=== PATIENT | female | born 1985 | race Caucasian/White ===

== ENCOUNTER 2016-11-13 04:01 | Inpatient (IN) | payer OTHER ==
[2016-11-13] MEDS ORDERED: OXYTOCIN/RINGERS LACTATE 1,000 ML IV PRN (04:30)
[2016-11-13] MEDS ORDERED: EPSOM SALT 454 GM TP PRN (04:30)
[2016-11-13] MEDS ORDERED: IBUPROFEN 600 MG TAB PO PRN (04:30)
[2016-11-13] MEDS ORDERED: TERBUTALINE SULFATE 1 MG/ML VIAL IV PRN (04:30)
[2016-11-13] MEDS ORDERED: LIDOCAINE 1% 30 ML SDV SC PRN (04:30)
[2016-11-13] MEDS ORDERED: LR 1,000 ML IV PRN (04:30)
[2016-11-13] MEDS ORDERED: OLIVE OIL 118 ML BTL MISC PRN (04:30)
[2016-11-13] MEDS ORDERED: AMMONIA AROMATIC 1 EACH AMP IH ONE (04:55)
[2016-11-13] MEDS ORDERED: OLIVE OIL 118 ML BTL ONE (04:55)
[2016-11-13] MEDS ORDERED: TERBUTALINE SULFATE 1 MG/ML VIAL ONE (04:55)
[2016-11-13] MEDS ORDERED: LIDOCAINE 1% 30 ML SDV ONE (04:55)
[2016-11-13] MEDS ORDERED: OXYTOCIN 10 UNIT/ML VIAL ONE (04:56)
[2016-11-13] MEDS ORDERED: MISOPROSTOL 200 MCG TAB ONE (04:56)
[2016-11-13 04:59] LABS: % IMMATURE GRANULYOCYTES 0.6 % (0.0-1.1); ABSOLUTE IMMATURE GRANULOCYTES 0.05 10^3/uL (0.00-0.10); ADD DIFF? NO; ADD MORPH? NO; ADD SCAN? NO; ATYPICAL LYMPHOCYTE FLAG 0 (0-99); FRAGMENT RBC FLAG 0 (0-99); HEMATOCRIT 41.9 % (38.0-47.0); HEMOGLOBIN 14.9 g/dL (12.6-16.3); LEFT SHIFT FLG 0 (0-99); LIPEMIA HEMOLYSIS FLAG 90 (0-99); MEAN CELL HEMOGLOBIN 31.3 pg (27.9-34.1); MEAN CELL HEMOGLOBIN CONCENTR. 35.6 g/dL (32.4-36.7); MEAN PLATELET VOLUME 13.1 fL (8.7-11.7); PLATELET CLUMPS FLAG 0 (0-99); PLATELET COUNT 178 10^3/uL (150-400); RED BLOOD CELL COUNT 4.76 10^6/uL (4.18-5.33); RED CELL DISTRIBUTION WIDTH 12.8 % (11.5-15.2)
[2016-11-13] MEDS ORDERED: OXYTOCIN/RINGERS LACTATE 500 ML IV SCH (05:00)
--- NOTE | 2016-11-13 06:28 | GHP ---
[f rep st] PREOP HISTORY AND PHYSICAL DATE OF ADMISSION: 11/13/2016 ADMITTING DIAGNOSIS: 1, para 0, at 39 weeks and 5 days with an estimated due date of 2016, presents for spontaneous rupture of membranes, clear at 1600 yesterday, 11/12, with occasional contractions, not painful. Patient was concerned about decreased movement, so presented arou nd 4 a.m. this morning. Denies vaginal bleeding. PAST MEDICAL HISTORY: Migraines. PAST SURGICAL HISTORY: Tonsillectomy, age 17. MEDICATIONS: vitamins. ALLERGIES: None. GYNECOLOGIC HISTORY: Denies history of abnormal Pap smears or STDs. FAMILY HISTORY: Noncontributory. SOCIAL HISTORY: . Denies alcohol, tobacco, or drug use. OBSTETRICAL HISTORY: 1, first . LABORATORIES: B+, antibody negative, GBS negative, HIV negative, hepatitis B negative, syp hilis negative, gonorrhea and chlamydia negative, rubella immune. Verified genetic screening negati ve. PHYSICAL EXAMINATION: VITAL SIGNS: Stable. GENERAL APPEARANCE: Alert and oriented x3. HEART: Rate regular. LUNGS: Clear to auscultation bilaterally. ABDOMEN: Gravid. Nontender. PELVIC: Vaginal exam: 3, 80, -1 in the office this week. position cephalic. heart tr acing category 1. heart tones 130s. Moderate variability. Positive accels. No decels. ASSESSMENT: A 31-year-old, 1, para 0, at 39 weeks and 5 days, presents for spontaneous rupt ure of membranes, not in labor. PLAN: Admission labs, Pitocin induction per protocol. Discussed Pitocin risks. Patient verbalized understanding. Maternal monitoring. Pain meds per patient request. Anticipate . /[id number]/MODL
--- NOTE | 2016-11-13 08:45 | OBPROG ---
OBG Progress Note Assessment/Plan: Assessment: 31 y/o @ 39 5/7 weeks with PROM Plan: Pitocin started and at 12 mu/min, cont per protocol FHTs - Cat I tracing Pt wants to go natural GBS negative, no abx needed 11/13/16 08:31 Subjective: Pt is doing well. Having some pain in her hips with ctx's. Declines SVE at this time. Objective: 11/13/16 04:45 Patient ABO/Rh B POSITIVE 11/13/16 04:45 Current Contraction Pattern: Regular FHR (bpm): 135 FHR Pattern Variability: Moderate FHR Category: 1 Membranes: SROM Amniotic Fluid Color: Clear ICD10 Worksheet Patient Problems: Problems Problem Status Onset SROM (spontaneous rupture of membranes) Acute
--- NOTE | 2016-11-13 09:03 | GHP ---
[f rep st] HISTORY AND PHYSICAL DATE OF ADMISSION: 11/13/2016 HISTORY OF PRESENT ILLNESS: The patient is a 31-year-old, 1, para 0 at 39 and 5/7 weeks with estimated due date 11/15/2016 by last menstrual period 02/08/2016 and confirmed by a first-trimester ultrasound at 9 weeks. The patient presents to Labor and Delivery with complaints of premature rupture of membranes at 4 o'clock on 11/12, clear fluid and no onset of contractions. GBS culture is negative. The patient did get good care at [facility], and presented in her 1st trimester. is uncomplicated. The patient did receive Tdap and flu during the . All genetic testing is negative. PAST OB HISTORY: The patient isprimiparous. GYNECOLOGICAL HISTORY: Age of menarche 8. Cycles are every 28 days, lasting 4- 5 days. Last menstrual period 02/08/2016. Had a positive test 03/09/2016. The patient denies any history of abnormal Pap smears. No exposure to sexually transmitted diseases and did receive Gardasil x3 in 2006. PAST MEDICAL HISTORY: Remarkable for migraines. PAST SURGICAL HISTORY: Tonsillectomy at age 16. FAMILY HISTORY: Unremarkable. SOCIAL HISTORY: Patient is . Lives with her . Patient denies any alcohol, tobacco, or illicit drug use. LABS: B positive. Antibody negative. RPR nonreactive. Rubella immune. Hepatitis B surface antigen negative. HIV negative. Pap, gonorrhea, chlamydia cultures negative this . Single AFP was negative. Verifi is negative. 1-hour Glucola was wnl. H and H 1st trimester 14 and 42, and in the 3rd trimester 14 and 41. ADMISSION PHYSICAL EXAM: VITAL SIGNS: Stable. Patient is afebrile. GENERAL: Alert, oriented x3. Well-nourished, well-developed female in no apparent distress. CARDIOVASCULAR: Heart regular rate and rhythm. LUNGS: Clear to auscultation. ABDOMEN: Gravid, soft, nontender, nondistended. EXTREMITIES: Normal to inspection without calf tenderness or edema. PELVIC: The patient was found to be 3 cm dilated, 80% effaced, -1 station in the office yesterday afternoon. Was not rechecked upon admission today. heart tones category 1 tracing, baseline 135 beats per minute. Positive accelerations. No decelerations. Moderate variability. ASSESSMENT: The patient is a 31-year-old, 1, para 0 at 39 weeks and 5 days with estimated due date 11/15/2016, who presents with premature rupture of membranes. PLAN: 1. Admit to Labor and Delivery. 2. Pitocin was started already per protocol. 3. GBS is negative. No prophylactic antibiotics needed. 4. The patient is not requesting any pain medicine or epidural at this time. 5. Anticipate vaginal delivery. /[id number]/MODL MTDD
[2016-11-13] MEDS ORDERED: fentaNYL 2MCG/ML/BUP 0.1% RTU 100 ML BAG EP ONE (12:34)
[2016-11-13] MEDS ORDERED: BUPIVACAINE 0.25% 30 ML SDV ONE (12:35)
[2016-11-13] MEDS ORDERED: fentaNYL 100 MCG/2 ML INJ ONE (12:35)
[2016-11-13] MEDS ORDERED: PHENYLEPHRINE HCL 100 MCG/ML SYR ONE (12:35)
--- NOTE | 2016-11-13 12:35 | OBPROG ---
OBG Progress Note Assessment/Plan: Assessment: 31 y/o @ 39 5/7 weeks with PROM Plan: Pitocin at 16 mu/min, cont per protocol FHTs - Cat II tracing with decel x 2 with maile to 90 bpm with return to baseline after resuscitation Dr. Peres paged for epidural 11/13/16 12:32 Subjective: Pt is requesting an epidural at this time. Objective: 11/13/16 04:45 Patient ABO/Rh B POSITIVE 11/13/16 04:45 - SVE Dilation (cm): 5 Effacement (%): 90 Station: +1 Current Contraction Pattern: Regular FHR (bpm): 140 FHR Pattern Variability: Moderate FHR Category: 2 Membranes: SROM Amniotic Fluid Color: Clear ICD10 Worksheet Patient Problems: Problems Problem Status Onset SROM (spontaneous rupture of membranes) Acute
--- NOTE | 2016-11-13 14:26 | OBPROG ---
OBG Progress Note Assessment/Plan: Assessment: 31 y/o @ 39 5/7 weeks with PROM, now in active labor Plan: Called into room by RN re: prolonged decel. Decel x 3-4 min with maile down to 90 bpm; with return to baseline. Pitocin turned off, pt to L side, oxygen applied- resuscitation performed and now reassuring strip. Pt reexamined and found to be Ant lip/+1 Will have pt labor down and reassess and then start pushing Will cont to closely monitor strip Anticipate 11/13/16 14:22 Subjective: Pt is comfortable, s/p epidural. Objective: 11/13/16 04:45 Patient ABO/Rh B POSITIVE 11/13/16 04:45 - SVE Dilation (cm): 9 Effacement (%): 100 (Ant lip) Station: +1 Current Contraction Pattern: Regular FHR (bpm): 130 FHR Pattern Variability: Moderate FHR Category: 2 Membranes: SROM Amniotic Fluid Color: Clear ICD10 Worksheet Patient Problems: Problems Problem Status Onset PROM (premature rupture of membranes) Acute
[2016-11-13] MEDS ORDERED: PHENYLEPHRINE HCL 100 MCG/ML SYR IVP PRN (15:00)
[2016-11-13] MEDS ORDERED: fentaNYL 2MCG/ML/BUP 0.1% RTU 100 ML EP SCH (15:00)
[2016-11-13] MEDS ORDERED: LR 500 ML IV SCH (15:00)
[2016-11-13] MEDS ORDERED: ONDANSETRON 4 MG/2 ML VIAL IVP PRN (15:00)
--- NOTE | 2016-11-13 15:05 | PREANESOB ---
Obstetric Pre-Anesthesia Info - General Info Proposed Procedure: Labor and delivery with pitocin (PROM). : 1 Para: 0 WBD: 40 - Info Status: Full Term Monitors: External FHR Baseline (bpm): 130 FHR Pattern: Reassuring - Labor Status Cervical Dilation per last OB SVE: 5, 9 Station per last OB SVE: +1 Amniotic Fluid Color: Clear Pitocin: In Use Indications for Labor Analgesia: Augmentation of Labor, Pain Control Labor Epidural: Proposed Anesthesia ROS: PROM. Allergies/Adverse Reactions: Allergy/AdvReac Type Severity Reaction Status Date / Time No Known Allergies Allergy Unverified 11/13/16 04:30 Home Medications: Medication Instructions Recorded 1 tab PO DAILY 11/13/16 Visit Medications: Generic Name Dose Route Start Last Admin Trade Name Freq PRN Reason Stop Dose Admin Diphenhydramine HCl 25 - 50 mg 11/13/16 15:00 Benadryl Injection IVP 05/12/17 14:59 Q6HRS PRN Itching Lactated Ringer's 1,000 mls @ 0 mls/hr 11/13/16 04:30 11/13/16 05:07 Lr IV 05/12/17 04:29 1,000 mls PRN PRN Administration SEE PROTOCOL CONDITIONS Protocol Per Protocol Oxytocin/Lactated Ringer's 1,000 mls @ 150 mls/hr 11/13/16 04:30 Pitocin 20 Units/Lr (Premix) IV PRN PRN Post- bleeding Oxytocin/Lactated Ringer's 500 mls @ 0 mls/hr 11/13/16 05:00 11/13/16 05:07 Pitocin 30 Units/Lr (Premix) IV 05/12/17 04:59 500 mls CONT DEVON Administration Per Protocol Fentanyl/Bupivacaine HCl 100 mls @ 0 mls/hr 11/13/16 15:00 Fentanyl/Bupivacaine/Ns 2 Mcg/Ml 0.1% (Premix EP 11/23/16 14:59 CONT DEVON Protocol As Directed Lactated Ringer's 500 mls @ 0 mls/hr 11/13/16 15:00 Lr IV 05/12/17 14:59 CONT DEVON As Directed Ibuprofen 600 mg 11/13/16 04:30 Motrin PO 05/12/17 04:29 Q6HRS PRN post , inflammation Lidocaine HCl 30 ml 11/13/16 04:30 Lidocaine Hcl 1% SC 05/12/17 04:29 ONCE PRN Episiotomy Magnesium Sulfate 454 gm 11/13/16 04:30 Epsom Salt TP 05/12/17 04:29 PRN PRN perineal discomfort [place] Oil 118 ml 11/13/16 04:30 Sweet Oil MISC 05/12/17 04:29 ONCE PRN preneal massage Ondansetron HCl 4 mg 11/13/16 15:00 Zofran IVP 05/12/17 14:59 Q4HRS PRN Nausea/Vomiting, Can't Take PO Phenylephrine HCl 100 mcg 11/13/16 15:00 Carloz-Synephrine IVP 05/12/17 14:59 .Q2M PRN Hypotension Terbutaline Sulfate 0.25 mg 11/13/16 04:30 Brethine IV 05/12/17 04:29 ONCE PRN Tachysystole Discontinued Medications Generic Name Dose Route Start Last Admin Trade Name Freq PRN Reason Stop Dose Admin Ammonia (Aromatic Spirit) Confirm 11/13/16 04:55 Ammonia Aromatic Administered 11/13/16 04:56 Dose 1 each IH .STK-MED ONE Bupivacaine HCl Confirm 11/13/16 12:35 Sensorcaine 0.25% Sdv Administered 11/13/16 12:36 Dose 30 ml .ROUTE .STK-MED ONE Ephedrine Sulfate Confirm 11/13/16 04:55 Ephedrine Sulfate Administered 11/13/16 04:56 Dose 50 mg .ROUTE .STK-MED ONE Fentanyl Confirm 11/13/16 12:35 Sublimaze Administered 11/13/16 12:36 Dose 100 mcg .ROUTE .STK-MED ONE Fentanyl/Bupivacaine HCl Confirm 11/13/16 12:34 Fentanyl/Bupivacaine/Ns 2 Mcg/Ml 0.1% (Premix Administered 11/13/16 12:35 Dose 100 ml EP .STK-MED ONE Lidocaine HCl Confirm 11/13/16 04:55 Lidocaine Hcl 1% Administered 11/13/16 04:56 Dose 30 ml .ROUTE .STK-MED ONE Misoprostol Confirm 11/13/16 04:56 Cytotec Administered 11/13/16 04:57 Dose 1,000 mcg .ROUTE .STK-MED ONE [place] Oil Confirm 11/13/16 04:55 Sweet Oil Administered 11/13/16 04:56 Dose 118 ml .ROUTE .STK-MED ONE Oxytocin Confirm 11/13/16 04:56 Pitocin Administered 11/13/16 04:57 Dose 30 unit .ROUTE .STK-MED ONE Phenylephrine HCl Confirm 11/13/16 12:35 Carloz-Synephrine Administered 11/13/16 12:36 Dose 1,000 mcg .ROUTE .STK-MED ONE Terbutaline Sulfate Confirm 11/13/16 04:55 Brethine Administered 11/13/16 04:56 Dose 1 mg .ROUTE .STK-MED ONE - Anesthesia History Response to Local Anesthetics: Normal - Social History Substance Use/Abuse: Denies - Focused Exam Blood Pressure: 118/80 Heart Rate: 82 Height/Weight (Nursing): Height 160.02 cm Weight 73.028 kg Physical Exam: Within normal limits. ASA Status: II Labs: 11/13/16 04:45 Patient ABO/Rh B POSITIVE 11/13/16 04:45 - Plan Anesthetic Plan: CSE Consent Signed and on Chart: Yes Patient/Guardian Understands and Agrees to Plan: Yes General Comments: Consent signed after epidural due to discomfort.
--- NOTE | 2016-11-13 15:08 | POSTANESTH ---
Post Anesthetic Evaluation Cardiovascular Status: Normal, Stable Respiratory Status: Normal, Stable, Similar to Pre-op Cond. Level of Consciousness/Mental Status: Can Participate in Eval, Alert and Oriented Pain Control: Adequate, Prn Tx Ordered Nausea/Vomiting Control: Adequate, Prn Tx Ordered Complications Possibly Related to Anesthesia: None Noted (Tolerated CSE well, stable, comfortable.)
[2016-11-13] MEDS ORDERED: HYDROCODONE/APAP 5/325 TAB PO PRN (17:02)
[2016-11-13] MEDS ORDERED: HYDROCORTISONE 0.5% CREAM TP PRN (17:02)
[2016-11-13] MEDS ORDERED: SIMETHICONE 80 MG TAB CHEW PO PRN (17:02)
--- NOTE | 2016-11-13 17:06 | OBPROC ---
- Labor and Delivery Onset of Contractions Date: 11/13/16 Onset of Contractions Time: 05:00 Onset of Contractions Type: Augmented Rupture of Membranes Date: 11/12/16 Rupture of Membranes Time: 16:00 Rupture of Membranes Type: Premature Amniotic Fluid Color: Clear Dilation Complete Time: 15:00 Delivery Type: Spontaneous Placenta Delivery Date: 11/13/16 Placenta Delivery Time: 16:43 Episiotomy/Laceration: Midline (Repaired with 3-0 vicryl), Periurethral (Left - hemostatic, not repaired) Repair: 3-0, Vicryl EBL: 300 Complications: None - Medications Labor Augmentation/Induction Meds Used: Pitocin Labor Augmentation/Induction Indication: Other (Specify) (PROM) Anesthesia: Epidural - Info A Delivery Date: 11/13/16 Delivery Time: 16:37 Sex of : Male (" Sanket") Score (1 Min): 8 Score (5 Min): 9
[2016-11-13] MEDS: IBUPROFEN 600 MG TAB PO PRN ×2 (17:22→23:15)
[2016-11-14] MEDS: IBUPROFEN 600 MG TAB PO PRN ×3 (05:14→19:48)
[2016-11-14] MEDS: DOCUSATE SODIUM 100 MG CAP PO PRN (08:41)
[2016-11-14 09:13] VITALS: O2SAT 97
--- NOTE | 2016-11-14 09:15 | OBPROG ---
OBG Progress Note Assessment/Plan: Assessment: 31 y/o PPD #1 s/p doing well. Plan: Routine PPC. support. 11/14/16 09:14 Subjective: Pt is feeling well today. She has min pain controlled with Ibuprofen. She is ambulating and voiding without difficulty and has min lochia. Breast feeding is going well. Objective: 11/13/16 04:45 Patient ABO/Rh B POSITIVE 11/13/16 04:45 Temp Pulse Resp BP Pulse Ox 36.1 C 96 16 110/73 96 11/13/16 21:30 11/13/16 21:30 11/13/16 21:30 11/13/16 21:30 11/13/16 21:30 Uterine Position/Fundal Height: Umbilicus -2 Uterine Tone: Firm - Physical Exam General Appearance: WD/WN, alert, no apparent distress Neck: non-tender, full range of motion, supple Respiratory: chest non-tender, lungs clear, normal breath sounds Cardiac/Chest: regular rate, rhythm Abdomen: normal bowel sounds Extremities: swelling (no), Gill's sign (neg) ICD10 Worksheet Patient Problems: Problems Problem Status Onset PROM (premature rupture of membranes) Acute (spontaneous vaginal delivery) Acute
[2016-11-14] MEDS ORDERED: EPSOM SALT 454 GM TP ONE (17:28)
[2016-11-15] MEDS: IBUPROFEN 600 MG TAB PO PRN ×2 (01:51→08:59)
[2016-11-15 06:56] VITALS: RESP 18
[2016-11-15] MEDS: DOCUSATE SODIUM 100 MG CAP PO PRN (08:59)
[2016-11-15 09:42] VITALS: BP 109/76; PULSE 81; TEMP 98.2
--- NOTE | 2016-11-15 10:08 | SOAPPROG ---
SOAP Progress Note Assessment/Plan: Assessment: 31y/o s/p , day 2, stable Plan: Routine PP care prior to discharge Anticipate d/c to home today 11/15 F/U in clinic @4 & 6wks 11/15/16 10:05 Subjective: Pt doing well, infant at bedside. Reports going well. Lochia light. Voiding without difficulty. Denies BM, +flatus. Denies feelings of depression/blues. Objective: Vital Signs Temp Pulse Resp BP Pulse Ox 36.8 C 81 18 109/76 97 11/15/16 08:00 11/15/16 08:00 11/15/16 08:00 11/15/16 08:00 11/15/16 08:00 Laboratory Results 11/13/16 04:45 11/14/16 11/15/16 11/16/16 05:59 05:59 05:59 Output Total 400 Balance -400 Physical Exam - Physical Exam General Appearance: alert, no apparent distress Respiratory: lungs clear, normal breath sounds Cardiac/Chest: regular rate, rhythm, edema (+1 BLE edema) Abdomen: non-tender, soft, other (Fundus firm @U-1) Skin: normal color, warm/dry Extremities: normal range of motion Neuro/Psych: alert, normal mood/affect, oriented x 3 ICD10 Worksheet Patient Problems: Problems Problem Status Onset PROM (premature rupture of membranes) Acute (spontaneous vaginal delivery) Acute
== END 2016-11-15 12:00 | disposition home or self-care (01) | DRG 775 ==
LOC: FLD 04:01 → FOB 19:41
PROVIDERS: ADMIT Advanced Practice Midwife; ATTEND Obstetrics & Gynecology
PROC: 0HQ9XZZ Repair Perineum Skin, External Approach (ICD-10-PCS; principal; 2016-11-13)
PROC: 10E0XZZ Delivery of Products of Conception, External Approach (ICD-10-PCS; principal; 2016-11-13)
DX: O42.92 Full-term premature rupture of membranes, unspecified as to length of time between rupture and onset of labor (principal); O70.0 First degree perineal laceration during delivery; O76 Abnormality in fetal heart rate and rhythm complicating labor and delivery; Z3A.39 39 weeks gestation of pregnancy; Z37.0 Single live birth
CPT/HCPCS: J2370; J2590; J3010; J3105

== ENCOUNTER → 2018-10-26 | Outpatient (CLI) | payer OTHER | LOC: FIMAGING 14:13 | PROVIDERS: ATTEND Advanced Practice Midwife | DX: O09.521 Supervision of elderly multigravida, first trimester (principal); Z3A.13 13 weeks gestation of pregnancy ==

== ENCOUNTER → 2018-12-14 | Outpatient (CLI) | payer OTHER | LOC: FIMAGING 09:28 | PROVIDERS: ATTEND Advanced Practice Midwife | DX: Z34.92 Encounter for supervision of normal pregnancy, unspecified, second trimester (principal); Z3A.20 20 weeks gestation of pregnancy ==